=== PATIENT | male | born 1980 | race Caucasian/White ===

== ENCOUNTER 2019-10-23 03:50 | Emergency (ER) | payer SELFPAY ==
[~2019-10-23] VITALS: Ht 188 cm; Wt 86.2 kg
[2019-10-23] MEDS ORDERED: NITROGLYCERIN 0.4 MG/TAB BOTTLE SL ONE ×2 (04:15→04:19)
[2019-10-23] MEDS ORDERED: ASPIRIN 325 MG TABLET PO ONE (04:15)
[2019-10-23] MEDS ORDERED: ASPIRIN 325 MG TABLET ONE (04:19)
[2019-10-23 04:22] VITALS: BP 136/98
[2019-10-23 04:50] LABS: BASOPHILS % (AUTO) 0.4 % (0.0-2.0); EOSINOPHILS % (AUTO) 0.8 % (0.0-7.0); HEMATOCRIT 38.9 % (36.7-47.1); LYMPHOCYTES # (AUTO) 1.3 K/uL (20.0-40.0); LYMPHOCYTES % (AUTO) 20.7 % (20.5-51.5); MEAN CORPUSCULAR HEMOGLOBIN 30.4 uug (23.8-33.4); MEAN CORPUSCULAR HGB CONC 33 g/dL (32.5-36.3); MEAN CORPUSCULAR VOLUME 91.1 fL (73.0-96.2); MONOCYTES # (AUTO) 0.6 K/uL (2.0-10.0); MONOCYTES % (AUTO) 9.7 % (0.0-11.0); NEUTROPHILS # (AUTO) 4.5 K/uL (1.8-8.9); NEUTROPHILS % (AUTO) 68.4 % (38.5-71.5); PLATELET COUNT (AUTO) 212 K/uL (152-348); RED BLOOD CELL COUNT(AUTO) 4.28 MIL/uL (4.06-5.63); WHITE BLOOD COUNT (AUTO) 6.5 K/uL (3.6-10.2)
[2019-10-23 05:05] LABS: BILIRUBIN,DIRECT 0.2 mg/dL (0.0-0.2); BILIRUBIN,TOTAL 0.4 mg/dL (0.2-1.0); CREATININE 1.1 mg/dL (0.6-1.3); POTASSIUM 4.3 mmol/L (3.5-5.1); TOTAL PROTEIN, SERUM 7.3 g/dL (6.4-8.2)
[2019-10-23] MEDS ORDERED: SWABABLE VALVE TRANSFER SET EA MC ONE (05:55)
[2019-10-23] MEDS ORDERED: IOHEXOL 350 100 ML INFUS..BTL ONE (05:56)
[2019-10-23] MEDS ORDERED: IV NORMAL SALINE 250 ML IV ONE (05:56)
[2019-10-23 06:07] LABS: *AMPHETAMINE, URINE POSITIVE (NEGATIVE); *BARBITURATE, URINE NEGATIVE (NEGATIVE); *CANNABINOID, URINE NEGATIVE (NEGATIVE); *COCCAINE, URINE NEGATIVE (NEGATIVE); *OPIATE, URINE NEGATIVE (NEGATIVE); *PHENCYCLIDINE SCREEN,URINE NEGATIVE (NEGATIVE)
== END 2019-10-23 07:29 | disposition left against medical advice (07) ==
LOC: ER 03:55
DX: R07.9 Chest pain, unspecified (principal); Z59.0 Homelessness; R94.2 Abnormal results of pulmonary function studies; I25.2 Old myocardial infarction; J44.9 Chronic obstructive pulmonary disease, unspecified
CPT/HCPCS: 36415; 70030-TC; 71045; 71275; 80307; 85025; 85730; 93005; A4663; J7030; J7050; Q9967